=== PATIENT | female | born 1965 | race Caucasian/White ===

== ENCOUNTER 2018-12-12 08:28 | Day surgery (SDC) | payer OTHER ==
[~2018-12-12] VITALS: Ht 172.7 cm; Wt 74.8 kg
[2018-12-12] VITALS (11 sets, daily range): BP systolic 106–138; BP diastolic 73–90
--- NOTE | 2018-12-12 07:01 | Pre-Procedure Note/Attestation ---
Pre-Procedure Note/Attestation Complete Prior to Procedure Planned Procedure: right Procedure Narrative: rt knee scope, chondroplasty, possible resection of loose fragment Indications for Procedure Pre-Operative Diagnosis: rt knee chondromalacia Attestation I attest that I discussed the nature of the procedure; its benefits; risks and complications; and alternatives (and the risks and benefits of such alternatives ), prior to the procedure, with the patient (or the patient's legal business office representative). I attest that, if there was a reasonable possibility of needing a blood transfusion, the patient (or the patient's legal business office representative) was given the [facility] standardized written summary, pursuant to the [place] Blood Safety Act ([place] Health and Safety Code # 1645, as amended). I attest that I re-evaluated the patient just prior to the surgery and that there has been no change in the patient's H&P, except as documented below: none Carlos Willis MD Dec 12, 2018 07:01
[~2018-12-12 08:28] MED LIST: ceFAZolin 1gm IVPB IVPB ONE; celeBREX 200mg Cap **SURGERY PATIENTS ONLY ORAL ONE; oxyCONTIN 20mg tab ORAL ONE
[2018-12-12] MEDS ORDERED: VITAMIN D PO (08:56)
[2018-12-12] MEDS ORDERED: MULTIVITAMINS1 EAC2 ORAL (08:56)
[2018-12-12] MEDS ORDERED: oxyCONTIN 20mg tab ORAL ONE (09:05)
[2018-12-12] MEDS ORDERED: celeBREX 200mg Cap **SURGERY PATIENTS ONLY ORAL ONE (09:05)
[2018-12-12] MEDS ORDERED: LR 1000ml 1,000 ML IVLG SCH (09:26)
[2018-12-12] MEDS ORDERED: Hydromorphone 0.5mg/0.5ml inj IVP PRN (09:30)
[2018-12-12] MEDS ORDERED: Atropine Sulfate 0.4mg/ml inj IVP PRN (09:30)
[2018-12-12] MEDS ORDERED: Labetalol 5mg/ml 20ml vial IV PRN (09:30)
[2018-12-12] MEDS ORDERED: Ketorolac 30mg Inj IV PRN ×2 (09:30)
[2018-12-12] MEDS ORDERED: HYDROcodone/Acetamin 5/325 tab ORAL PRN ×2 (09:30→14:01)
[2018-12-12] MEDS ORDERED: Midazolam 2mg/2ml Inj IVP PRN (09:30)
[2018-12-12] MEDS ORDERED: oxyCODONE HCL/Acetaminophen 5/325mg ORAL PRN (09:30)
[2018-12-12] MEDS ORDERED: fentaNYL 100 mcg/2 mL IV PRN (09:30)
[2018-12-12] MEDS ORDERED: DiphenhydrAMINE 50mg/ml Inj IVP PRN (09:30)
[2018-12-12] MEDS ORDERED: LORazepam Inj 2mg/ml 1ml IV PRN (09:30)
[2018-12-12] MEDS ORDERED: Meperidine 50mg/ml Inj(FOR RIGORS ONLY) IVP PRN (09:30)
[2018-12-12] MEDS ORDERED: Metoclopramide 10mg/2ml Inj IVP PRN (09:30)
[2018-12-12] MEDS ORDERED: HYDROcodone/Acetamin 7.5/325 tab ORAL PRN (09:30)
--- NOTE | 2018-12-12 09:33 | Anethesia Preoperative Eval ---
Anesthesia Pre-op PMH/ROS General Date of Evaluation: Dec 12, 2018 Time of Evaluation: 10:16 Anesthesiologist: Shahla ASA Score: ASA 2 Mallampati Score Class I : Soft palate, uvula, fauces, pillars visible Class II: Soft palate, uvula, fauces visible Class III: Soft palate, base of uvula visible Class IV: Only hard plate visible Mallampati Classification: Class II Surgeon: Lazaro Diagnosis: R Knee Pain Surgical Procedure: R Knee Arthroscopy Anesthesia History: none Family History: no anesthesia problems Allergies: Coded Allergies: No Known Allergies (Unverified , 12/12/18) Medications: see eMAR Patient NPO?: Yes Past Medical History Gastrointestinal/Genitourinary: Reports: GERD PSxH Narrative: R Breast Implant, Bilateral Hernia Repair Anesthesia Pre-op Phys. Exam Physician Exam Last Vital Signs Date Time Temp Pulse Resp B/P (MAP) Pulse Ox O2 Delivery O2 Flow Rate FiO2 12/12/18 08:53 Room Air 12/12/18 08:52 97.7 63 18 123/75 100 Constitutional: NAD Neurologic: CN 2-12 intact Cardiovascular: RRR Respiratory: CTA Gastrointestinal: S/NT/ND Airway Exam Mallampati Score: Class II MO: full ROM: full Teeth: intact Anesthesia Pre-op A/P Risk Assessment & Plan Assessment: ASA 2 Plan: GA Status Change Before Surgery: No Pre-Antibiotics Dru Gram Ancef IV Given Within 1 Hr of Incision: Yes Time Given: 10:26 Geronimo Gale MD Dec 12, 2018 09:33
[2018-12-12] MEDS ORDERED: Ropivacaine 5mg/ml Vial 30ml INJ ONE (09:54)
[2018-12-12] MEDS ORDERED: Lidocaine 1% MPF 10mg/ml 5ml ONE (09:56)
[2018-12-12] MEDS ORDERED: Dexamethasone 4mg/ml vial ONE (09:56)
[2018-12-12] MEDS ORDERED: Sodium Chloride 10ml vial INJ ONE (09:57)
[2018-12-12] MEDS ORDERED: Propofol 200mg/20ml IV ONE (10:00)
[2018-12-12] MEDS ORDERED: Acetaminophen (Non formulary) 100 ML IV ONE (10:00)
[2018-12-12] MEDS ORDERED: LR 1000ml ONE (10:00)
[2018-12-12] MEDS ORDERED: fentaNYL 100 mcg/2 mL IV ONE (10:02)
[2018-12-12] MEDS ORDERED: NS Irrig 4000ml IRRIG ONE (10:57)
--- NOTE | 2018-12-12 11:12 | Brief Operative Note ---
Immediate Post Operative Note Operative Note Chief Complaint: rt knee pain Pre-op Diagnosis: rt knee chondromalacia Procedure: rt knee scope, chondroplasty, lateral meniscectomy Post-op Diagnosis: same as pre-op Findings: consistent w/pre-op dx studies Surgeon: md sharifa Anesthesiologist: md millicent Anesthesia: general Specimen: none Complications: none Condition: stable Fluids: ns Estimated Blood Loss: minimal Drains: none Implant(s) used?: No Marylin Draper Dec 12, 2018 11:12
--- NOTE | 2018-12-12 11:29 | Immediate Post-Op Evaluation ---
Immediate Post-Op Evalulation Immediate Post-Op Evalulation Procedure: R Knee Arthroscopy Date of Evaluation: Dec 12, 2018 Time of Evaluation: 11:40 IV Fluids: 600 LR Blood Products: 0 Estimated Blood Loss: 5 Urinary Output: 0 Blood Pressure Systolic: 106 Blood Pressure Diastolic: 73 Pulse Rate: 62 Respiratory Rate: 16 O2 Sat by Pulse Oximetry: 99 Temperature (Fahrenheit): 97.1 Pain Score (1-10): 2 Nausea: No Vomiting: No Complications 0 Patient Status: awake, reacts, patent, none Hydration Status: adequate Dru Gram Ancef IV Given Within 1 Hr of Incision: Yes Time Given: 10:26 Geronimo Gale MD Dec 12, 2018 11:29
--- NOTE | 2018-12-12 11:30 | 48 Hour Post Anesthesia Eval ---
Post Anesthesia Evaluation Procedure: R Knee Arthroscopy Date of Evaluation: Dec 12, 2018 Time of Evaluation: 13:42 Blood Pressure Systolic: 111 0: 72 Pulse Rate: 64 Respiratory Rate: 18 Temperature (Fahrenheit): 98.2 O2 Sat by Pulse Oximetry: 99 Airway: patent Nausea: No Vomiting: No Pain Intensity: 2 Hydration Status: adequate Cardiopulmonary Status: Stable Mental Status/LOC: patient returned to baseline Follow-up Care/Observations: 0 Post-Anesthesia Complications: 0 Follow-up care needed: ready to discharge Geronimo Gale MD Dec 12, 2018 11:30
[2018-12-12] MEDS ORDERED: Tylenol #3 tab (300mg/30mg) ORAL PRN (14:01)
[2018-12-12] MEDS ORDERED: D5 1/2NS 1,000 ML IV SCH (14:01)
[2018-12-12] MEDS ORDERED: HYDROmorphone 1mg/ml Carpuject SUBQ PRN (14:01)
--- NOTE | 2018-12-12 17:00 | Operative Note - Dictated ---
DATE OF OPERATION: 12/12/2018 PREOPERATIVE DIAGNOSES: 1. Right knee possible chondral flap underneath the patella causing catching and popping. 2. Possible loose fragment in the right knee. POSTOPERATIVE DIAGNOSES: 1. Delamination of the central patella and medial lateral facet with an unstable chondral flap measuring 1 x 1 cm. 2. Right knee small posterior horn lateral meniscus tear involving 10% lateral meniscus. 3. Right knee 1 x 2 cm area of grade 3 chondromalacia of the medial femoral condyle in the weightbearing zone. 4. Thickened medial plica shelf that was pinched, that was contacting the medial femoral condyle. PROCEDURE: 1. Right knee arthroscopy with extensive intra-articular shaving. 2. Right knee patellofemoral and medial femoral chondroplasty. 3. Right knee partial lateral meniscectomy involving 10% of posterior horn and body lateral meniscus. 4. Right knee resection of a thickened medial plica shelf that was impinging on the medial femoral condyle. SURGEON: Carlos Willis M.D. TWISTING MACHINE OPERATOR: None. ANESTHESIOLOGIST: Geronimo Gale M.D. ANESTHESIA: General LMA anesthesia. TOURNIQUET TIME: 25 minutes. ESTIMATED BLOOD LOSS: Less than 20 mL. COMPLICATIONS: None. SURGICAL INDICATION: The patient is a 53-year-old female, who sustained the above injury to her knee. The patient was treated non-operative initially, but this did not alleviate the patients symptoms. Therefore, after discussing all non-surgical and surgical options, and discussing all foreseeable risk and benefits of surgery, the patient opted for surgical treatment as described above. PATIENT POSITIONING: The patient was brought to the operating room table and placed supine. All pressure points were well padded. General anesthesia was induced and a well padded tourniquet was placed on the thigh. The lateral post was placed and positioned to allow for opening of the medial compartment of the knee without placing pressure over the fibular head. The patients entire leg was prepped and draped in the usual sterile fashion. Time out was performed and preop abx was given and after exsanguinating the lower extremity, the tourniquet was inflated to 275 mm of mercury. EXAMINATION OF THE KNEE UNDER ANESTHESIA: Before prepping and draping the knee and while the patient was relaxed under general anesthesia, the knee was examined for ROM, and anterior and posterior, medial and lateral, posterolateral, and posteromedial instability. Pivot shift testing was performed. There was no evidence of loss of motion or instability and the pivot shift testing was negative. PORTAL PLACEMENT: The lateral portal was placed with the knee flexed to 90 degrees at the level of inferior border of the patella in line with the lateral border of the patella. A cm skin incision was made with an #11 blade, and using a blunt obturator, the capsule was gently penetrated. Sterile saline solution was then infused inside the knee with the aid of a pump set at 35 mm mercury pressure. Under direct visualization, placement of the medial portal was preliminary judged using a spinal needle, and it was subsequently established using the same technique as the lateral portal. Care was given not to injure the cutaneous branches of the medial saphenous nerve or the subcutaneous veins. DIAGNOSTIC ARTHROSCOPY: The suprapatellar patellar pouch was visualized. There was no evidence of scar tissue or loose fragments. The medial and lateral patellar facets and trochlear groove articular cartilage was visualized. There was chondral damage over the medial and lateral patella facet in the central portion measuring 1 x 1 cm. There was unstable chondral flap. The medial plica shelf and the corresponding medial femoral condyle articular cartilage were visualized. There was thickened medial plica shelf that was rubbing against the medial femoral condyle. There was a small chondral damage over the area. The lateral gutter and the posterolateral corner of the knee were visualized. There were no loose bodies, and the popliteus tendon and other structures of the posterolateral corner of the knee were intact intra-articularly. At this point, the knee was placed in the figure of four position and the lateral compartment was entered. The lateral femoral condyle, lateral tibial plateau, and the anterior, body, and the posterior horn of the lateral meniscus were visualized and probed. The articular surfaces were intact and devoid of articular cartilage damage. There was a small tear of the posterior horn of the lateral meniscus right next to the ACL. This measured 10% lateral meniscus. The knee was then placed at 90 degree and the ACL and PCL were visualized and probed. The ACL was completely intact on visualization and probing, and it had excellent tension. The PCL was completely intact on visualization and probing and it had excellent tension. The medial compartment was then entered and the medial femoral condyle, medial tibial plateau, and the anterior, body, and the posterior horn of the medial meniscus were visualized and probed. There was a small area of chondral damage over the medial femoral chondral in the weightbearing zone measuring 1 x 2 cm. This was grade 3 chondromalacia. The medial meniscus was completely intact both on its undersurface and on the top. The medial gutter was visualized. There was no evidence of defect or loose fragments. The scope was then brought back to the patella femoral compartment. OPERATIVE ARTHROSCOPY: At this point, all loose debris and fragments were removed with the use of suction motorized shaver. Specific attention was given to assure all visible loose fragments were irrigated out of the knee joint with pump inflow and cannula outflow system. For patella femoral chondroplasty: The frayed articular cartilage of the undersurface of the patella and the trochlear groove were debrided using a motorized shaver. Suction was used to pull in the loose fragments and flaps of the cartilage and to minimize damage to the intact and well attached portion of the cartilage. This allowed for a smooth surface for the articular cartilage gliding. For medial plica resection: Attention was given to the thickened medial plica shelf. Using combination of brandon and baskets, the thickened portion of synovectomy was removed and synovectomy was performed in this fashion. Chondroplasty of the kissing lesion? of the medial femoral condyle was performed to create a smooth surface. The knee was placed through ROM and there was no contact between the thickened plica shelf and the medial femoral condyle. For lateral meniscectomy: At this point, attention was given to the lateral meniscus. Using combination of baskets and brandon, the torn portion of the lateral meniscus was removed. Attention was given to remove all displaced and unstable portion of the lateral meniscus while maintaining as much of the functional portion of the meniscus as possible. Approximately, 10% of the posterior horn of the meniscus was removed in this fashion. The transition between the meniscectomy portion and intact portion of the meniscus was smoothed out with combination of small baskets and brandon. Excellent transition zone was obtained in this fashion. For medial compartment chondroplasty: Care was given to the area of cartilage damage in the medial compartment. The frayed and loose fragments of articular cartilage were debrided using a motorized shaver. Suction was used to pull in the loose fragments and flaps of the cartilage and to minimize damage to the intact and well attached portion of the cartilage. This allowed for smooth surfaces for the articular cartilage. CONDITION AT DISCHARGE FROM OPERATING ROOM: The knee was irrigated with copious amount of normal saline at the end of the procedure. The scope was removed and the water was drained. The skin edges were re-approximated and sterile dressing was applied. All lap count and instrument counts were correct. Patient tolerated the procedure well without complications and was taken to the recovery room in stable conditions. Carlos Willis M.D. DR: SUKUMAR JOB#: [id number] CC:
== END 2018-12-12 13:15 | disposition home or self-care (01) ==
LOC: SUR 08:28
DX: S83.281A Other tear of lateral meniscus, current injury, right knee, initial encounter (principal); M23.91 Unspecified internal derangement of right knee; K21.9 Gastro-esophageal reflux disease without esophagitis; E55.9 Vitamin D deficiency, unspecified; X58.XXXA Exposure to other specified factors, initial encounter; Y92.9 Unspecified place or not applicable
CPT/HCPCS: 29877; 29881; J0690; J1100; J2250; J2405; J2704; J2795; J3010; 94003; 94150